=== PATIENT | female | born 1955 | race Caucasian/White ===

== ENCOUNTER 2023-08-03 06:16 | Day surgery (SDC) | payer MEDICARE, SELFPAY ==
[2023-08-03] VITALS (9 sets, daily range): BP systolic 118–167; BP diastolic 62–129; BMI 29.1
[2023-08-03] MEDS: Pyridium 200 MG PO (07:21)
[2023-08-03] MEDS: NORMOSOL-R 1000 IV (07:21)
== END 2023-08-03 10:20 | disposition home or self-care (01) ==
LOC: SDS 06:16
PROVIDERS: ATTENDING PHYSICIAN Obstetrics & Gynecology
DX: D25.1 Intramural leiomyoma of uterus (principal); R31.29 Other microscopic hematuria
CPT/HCPCS: 58558; 88305; 88341; 88342

== ENCOUNTER → 2023-09-09 15:47 | Outpatient (REF) | payer MEDICARE, SELFPAY ==
[2023-09-09 19:50] LABS: Urine Albumin Trace (Neg - Trace); Urine Bilirubin Negative (Negative); Urine Character Slightly Cloudy (Clear); Urine Color Yellow; Urine Glucose Negative (Negative); Urine Ketone Trace (Negative); Urine Leukocyte 1+ (Negative); Urine Nitrite Negative (Negative); Urine Occult Blood 3+ (Negative); Urine Urobilinogen Negative (Neg - 1+)
[2023-09-09 19:59] LABS: Urine Squamous Cell 16-20 /LPF (Few)
[2023-09-09 20:00] LABS: Urine Bacteria Moderate (Negative); Urine Red Blood Cell 30-40 /HPF (0-2)
[2023-09-09 20:01] LABS: Urine Mucus Moderate
== END ==
LOC: CLAB 15:47
PROVIDERS: ATTENDING PHYSICIAN Family Medicine
DX: R10.84 Generalized abdominal pain (principal)
CPT/HCPCS: 81003; 81015; 87086

== ENCOUNTER 2023-09-15 18:15 | Inpatient (IN) | payer MEDICARE, SELFPAY ==
[2023-09-15 13:47] VITALS: BP 144/85
[2023-09-15 14:23] LABS: % Basophils 0.2 % (0-2); % Eosinophils 0.2 % (0-6); % Immature Granulocytes 0.4 % (0-0.5); % Lymphocytes 5.1 % (20.5-51.1); % Monocytes 4.3 % (1.7-9.3); % Neutrophils 89.8 % (42.2-75.2); Absolute Immature Granulocytes 0.1 10^3/uL (0-0.05); Absolute Lymphocytes 0.8 10^3/uL (1.2-3.4); Absolute Monocytes 0.7 10^3/uL (0.1-0.6); Absolute Neutrophils 14.7 10^3/uL (1.4-6.5); Hematocrit 45.2 % (37.0-47.0); Hemoglobin 15.3 g/dL (12.0-16.0); Mean Corp Hgb Conc. 33.8 g/dL (33.0-37.0); Mean Corpuscular Hgb 29.8 pg (27.0-31.0); Mean Corpuscular Volume 88.1 fL (81.0-99.0); Mean Platelet Volume 10.1 fL (7.4-10.4); Nucleated Red Blood Cells % 0 %; Platelet Count 308 10^3/uL (130-400); Red Blood Cell Count 5.13 10^6/uL (4.20-5.40); Red Cell Dist. Width 13.4 % (11.5-14.5); White Blood Cell Count 16.4 10^3/uL (4.8-10.8)
[2023-09-15 14:24] LABS: Urine Albumin Trace (Neg - Trace); Urine Bilirubin 1+ (Negative); Urine Character Clear (Clear); Urine Color Yellow; Urine Glucose Negative (Negative); Urine Ketone Trace (Negative); Urine Leukocyte 2+ (Negative); Urine Nitrite Negative (Negative); Urine Occult Blood Trace (Negative); Urine Specific Gravity 1.015 (<1.030); Urine Urobilinogen Negative (Neg - 1+)
[2023-09-15 14:39] VITALS: BMI 27.5
[2023-09-15 14:39] LABS: ALT (SGPT) 31 U/L (0-35); AST (SGOT) 26 U/L (14-36); Albumin 4.5 g/dl (3.5-5.0); Alkaline Phosphatase 95 U/L (38-126); Blood Urea Nitrogen 18 mg/dl (7-17); Carbon Dioxide 24 mmol/L (22-30); Chloride 106 mmol/L (98-107); Glucose 111 mg/dl (70-99); Lipase 63 U/L (23-300); Potassium 4.1 mmol/L (3.5-5.1); Sodium 137 mmol/L (135-145); Total Protein 7.2 g/dl (6.3-8.2); eGFR > 60.00
--- NOTE | 2023-09-15 14:54 | ED.GENMED ---
History of Present Illness
General
Chief Complaint: Abdominal Symptoms
Source: patient
Exam Limitations: none
Time Seen by Provider: 09/15/23 14:37
Nursing documentation reviewed up to this point in time: agreed with
Travel History
Have you had any contact with someone who has COVID-19?: No
Do you have any symptoms of coronavirus? Fever > 100 degrees, chills, cough, shortness of breath, sore throat, loss of taste or smell, muscle aches, or headache?: No
History of Present Illness
History of Present Illness:
68-year-old female with history of anxiety, MVP, recurrent UTI, benzodiazepine abuse, smoker, HLD, polyarthralgia, PVD, kidney stones, Recent endometrial lesion with microscopic hematuria for which she had a hysteroscopy with dilation and curettage
and a cystoscopy on 08/03/[address] Dennis Nevarez. States ever since then she's had mid lower abdominal sharp shooting pains that radiate to her rectum and cause painful BMs and also radiates up to her chest at times (she had umbilical hernia repair
and afraid 'something is strangulating my bowel' or 'maybe it's a kidney stone.'
She has seen Dr. Nevarez twice for these symptoms, last time was 9 days ago, told to take Miralax, stool softener
Said she called her GI Dr. Green who had no openings until December, and recommended she see her PCP Dr. Caceres
Saw Dr. Caceres's partner Dr. Ball 2 days ago gave rx for muscle relaxant that 'starts with a D,'
Has f/u appt with Dr. Nevarez in 9 days.
Past History
Past History
ED Past Medical History: Other (MVP, renal cyst)
ED Past Surgical History: Appendectomy, Gynecological and Urological
Social History
Tobacco: Smoker
Alcohol: Occasional
Drug: None
Personal:
Living: with family
Employment: Other
Family History
Family History: Hypertension
Review of Systems
Review of Systems
Allergies reviewed?: Yes
All Other Systems: ROS reviewed and negative except as documented in HPI and ROS
Constitutional: Denies fever
Respiratory: Denies trouble breathing
Cardiac: Denies chest pain
ABD/GI: Reports abdominal pain, nausea, diarrhea and constipated; Denies vomiting, bloody stools or black stools
: Reports flank pain (Left); Denies dysuria, difficulty voiding or urgency
Musculoskeletal: Reports no symptoms
Skin: Reports no symptoms
Neurological: Reports no symptoms
Phy Exam
Physical Exam
Physical Exam:
GENERAL: No acute distress. A&Ox3.
CONSTITUTIONAL: Afebrile.
EYES: clear, conjunctivae normal
ENMT: moist mucus membranes, Pharynx nl
RESPIRATORY: Regular respirations, nonlabored, lungs clear.
CARDIOVASCULAR: Regular rate and rhythm, no murmurs, no rubs.
GI: Soft, generally tender to palpation, hypoactive BS
MUSCULOSKELETAL: Moves with ease. Well perfused.
SKIN: Warm, dry, pink
PSYCH: Normal mood and affect. Well kept, interactive and appropriate
NEUROLOGIC: Awake, alert and oriented. No focal neurological deficits
Course
Orders/Labs/Results
Orders:
Orders
09/15/23 13:55
Complete Blood Count/With Diff Urgent
Comprehensive Metabolic Panel Urgent
Lipase Urgent
Urinalysis Reflex To Culture Urgent
Date Specimen was Collected: 09/15/23
Time Specimen was Collected: 13:52
Urine Microscopic Reflex Cult Urgent
Urine Culture Urgent
YOUNG Source: U
Specimen Description:
Date Specimen was Collected: 09/15/23
Time Specimen was Collected: 13:52
09/15/23 Dinner
NPO
Allow oral meds: Yes
Allow clear liquids: Sips of Clears
09/15/23 15:02
EKG [Electrocardiogram (*1)] Urgent
Reason for Study: Chest Pain
EKG- Treatment ONCE
09/15/23 15:21
CT Abd/pel Without Iv Or Oral Urgent
Comment:
Reason For Exam: gen abd and L flank pain, hx stones
09/15/23 15:23
0.9% Sodium Chloride 1000 ml [Nss] 1,000 ml IV BOLUS
09/15/23 15:38
Ketorolac [Toradol] 15 mg IV NOW STA
09/15/23 16:50
HYDROmorphone [Dilaudid] 0.5 mg IV NOW STA
09/15/23 16:55
MetroNIDAZOLE 500 MG/100 ML [Flagyl 500 mg] 100 ml IV NOW
09/15/23 16:56
CefTRIAXone [Rocephin] 1,000 mg IV NOW STA
09/15/23 16:58
GASTROINTESTINAL CONSULT Urgent
Consulting Provider: Michelle Marquez
Was physician already notified: Yes
Reason for consult: severe sigmoid diverticulitis
09/15/23 17:09
Ondansetron Injectable [Zofran] 4 mg .ROUTE .STK-MED ONE
09/15/23 17:11
Ondansetron Injectable [Zofran] 4 mg IV NOW STA
09/15/23 17:22
Admit/Transfer Patient As Directed
Co-Sign Provider:
Level of Care: Inpatient admission
Assign to:: Medical/Surgical
Physician / Group: colette
Diagnosis: diverticulitis
Reason for Hospitalization: diverticulitis
Expected length of stay greater than two midnights?: Yes
ELOS- Estimated Length of Stay in days: 2
I certify the patient meets the requirements for IP care: Yes
Code Status As Directed
Resuscitation Status: Full Code
09/15/23 21:12
0.9% Sodium Chloride 1000 ml [Nss] 1,000 ml IV 80 mls/hr
HYDROmorphone [Dilaudid] 0.5 mg IV Q4HPRN PRN
Heparin 5,000 units SC Q12
Ondansetron Injectable [Zofran] 4 mg IV Q6HPRN PRN
09/15/23 21:12
Activity As Directed
Activity Level: As Tolerated
Vital Signs As Directed
Frequency: Per unit guidelines
DX Deep Vein Thrombosis Video Routine
09/15/23 21:21
Albuterol [ProAIR HFA INHALER] 1 puff INH R Q4HPRN PRN
09/15/23 22:00
Piperacillin/Tazo 3.375 Gram [Zosyn] 3.375 gram in 50 ml IV Q6H
09/16/23 08:00
Acetaminophen [Tylenol] 1,000 mg PO DAILY
09/16/23 08:22
Complete Blood Count/With Diff IN AM
Comprehensive Metabolic Panel IN AM
Abnormal Lab Results
09/15/23
13:55
WBC 16.4 H 10^3/uL
(4.8-10.8)
Abs Immat Gran (auto) 0.1 H 10^3/uL
(0-0.05)
Absolute Neuts (auto) 14.7 H 10^3/uL
(1.4-6.5)
Absolute Lymphs (auto) 0.8 L 10^3/uL
(1.2-3.4)
Absolute Monos (auto) 0.7 H 10^3/uL
(0.1-0.6)
Neutrophils % 89.8 H %
(42.2-75.2)
Lymphocytes % 5.1 L %
(20.5-51.1)
BUN 18 H mg/dl
(7-17)
Creatinine 0.5 L mg/dL
(0.6-1.0)
Glucose 111 H mg/dl
(70-99)
Total Bilirubin 2.0 H mg/dl
(0.2-1.3)
Urine Ketones Trace A
(Negative)
Ur Occult Blood Reflex Trace A
(Negative)
Urine Bilirubin 1+ A
(Negative)
Leukocyte Esterase Rfl 2+ A
(Negative)
Urine RBC 3-6 A /HPF
(0-2)
Urine Bacteria (Reflex) Few A
(Negative)
09/15/23 13:55
09/15/23 13:55
Vital Signs
Initial and Last Documented VS:
Initial Vital Signs
Temp Pulse Resp BP Pulse Ox
98.1 F 95 18 144/85 98
09/15/23 13:47 09/15/23 13:47 09/15/23 13:47 09/15/23 13:47 09/15/23 13:47
Last Documented Vital Signs
Temp Pulse Resp BP Pulse Ox
98.6 F 77 20 137/76 95
09/16/23 15:42 09/16/23 15:42 09/16/23 15:42 09/16/23 15:42 09/16/23 15:42
MDM/Problems Addressed
Differential Diagnosis Includes:
UTI, kidney stone, cystitis, bowel obstruction, hernia
MDM/Problems Addressed:
68-year-old female with history of anxiety, MVP, recurrent UTI, benzodiazepine abuse, smoker, HLD, polyarthralgia, PVD, kidney stones, Recent endometrial lesion with microscopic hematuria for which she had a hysteroscopy with dilation and curettage
and a cystoscopy on 08/03/[address] Dennis Nevarez. States ever since then she's had mid lower abdominal sharp shooting pains that radiate to her rectum and cause painful BMs and also radiates up to her chest at times (she's been researching and she
had umbilical hernia repair and afraid 'something is strangulating my bowel' or 'maybe it's a kidney stone.'
She has seen Dr. Nevarez twice for these symptoms, last time was 9 days ago, told to take Miralax, stool softener
Said she called her GI Dr. Green who had no openings until December, and recommended she see her PCP Dr. Caceres
Saw Dr. Caceres's partner Dr. Ball 2 days ago gave rx for 'muscle relaxant' called her pharmacy, it is Dicyclomine, she took this a.m. and it helped her pain but it makes her sleepy which she can't afford as she is in school and needs to study.
Has f/u appt with Dr. Nevarez in 9 days.
States pain is 6/10, durin initial exam pain several times came in waves lower mid abdomen into rectum and also now left flank
Afebrile, NAD
09/15/2023 1549 PM
CBC: WBC 16.4
CMP: No clinically significant abnormality
UA: 2+ leukocyte Estrace, 3-6 RBCs, trace blood, negative nitrites, greater than 30 squamous cells, few bacteria, nothing to indicate significant UTI or hematuria
09/15/[address] abdomen pelvis without p.o. or IV contrast radiology report read: IMPRESSION:
1. � SEVERE ACUTE DIVERTICULITIS in the MID SIGMOID COLON.
2. � Small amount of pelvic ascites.
3. � Bilateral nonobstructing intrarenal calculi.
4. � Moderate number of left renal cysts.
5. � Severe diffuse hepatic steatosis.
6. � Small hiatal hernia.
7. � Moderate to severe calcific atherosclerotic plaque in the abdominal aorta.
8. � Mild cardiomegaly.
Hospitalist and GI notified of admission, consult for GI in
IV antibiotics started, pt allergy to Cipro, will give Rocephin
*Critical Care Note
Total Time (30-74mins, 75-104mins- exclusive of procedures): Not Applicable
ED Attending Note
-
Portions of this chart may have been created with voice recognition software.� Occasional wrong word or��sound alike� substitutions may have occurred due to the inherent limitations of voice recognition software.
Discharge Plan
Departure
Patient Disposition: Admit
Date of Disposition: 09/15/23
Time of Disposition: 16:51
Admit to: Med/Surg
Presentation/result/management discussed w/ accepting MD/DO: Hospitalist
Condition: Fair
Discharge Problem:
Diverticulitis of sigmoid colon
Interventions
Interventions:
*Risk Screen - Suicide Last Done: 09/15/23 21:34
*General Assessment Last Done: 09/15/23 14:39
*Neglect/Abuse Screening Last Done: 09/15/23 14:39
ED- Fall Risk Assessment Last Done: 09/15/23 14:39
*ED COVID-19 Vaccine History Last Done: 09/15/23 13:49
*Nursing Disposition Last Done: 09/15/23 18:41
ZE-Zleyjl-Hkzuzmhnrq Assessment Last Done: 09/15/23 14:39
Discharge Date and Time
Discharge Date/Time: 09/15/23 21:15
[2023-09-15 15:02] LABS: Urine Squamous Cell >30 /LPF (Few)
[2023-09-15 15:17] LABS: Urine Bacteria Few (Negative)
[2023-09-15] MEDS: NSS 1000 IV ×2 (15:50→21:52)
[2023-09-15] MEDS: TORADOL 15 MG IV (15:50)
--- NOTE | 2023-09-15 15:56 | EDRN ---
the pt came back from CT scan and this RN approached the pt in [address], this RN was going to administer Toradol and IVF, the pt stated to this RN, 'I was wondering why you didn't give my hydration or pain medications', this RN stated that the pt
was taken to CT scan before this RN could get to the pt to administer medications, this RN was about to administer Toradol and before Toradol administration this RN notified the pt that the medication may burn slightly entering the pts vein, this RN
slowly pushed the IV Toradol and the pt stated to this RN, 'You could have told me that the medication burned, you said it slightly burned', this RN notified the pt that this RN did educate the pt on how the medication could burn entering the vein,
this RN checked the pts PIV and there is positive blood return and the PIV was flushed before IVF Bolus was hung, no s/s of infiltration, no c/o pain at the site, the pt is resting in stretcher in the lowest position, side rails up x2, call keene
within reach, HOB elevated, will continue to monitor the pt closely
[2023-09-15 16:04] VITALS: BP 136/75
--- NOTE | 2023-09-15 16:46 | EDRN ---
the pt is resting in stretcher in the lowest position, side rails up x2, HOB elevated, no s/s of distress, the pt asked this RN, 'When is the doctor going to let me know what is going on this is ridiculous, and i really don't understand why i am in
this hallway', this RN assured the pt that the provider would come back to the pts bedside to discuss results, and this RN apologized to the pt for her room situation in the hallway, the pt denies needing anything else at this time, awaiting for
provider to come back to the pts bedside, will continue to monitor the pt closely
[2023-09-15] MEDS: DILAUDID 0.5 MG IV ×2 (17:06→21:51)
[2023-09-15] MEDS: FLAGYL 500 MG 100 IV (17:06)
[2023-09-15] MEDS: ROCEPHIN 1000 MG IV (17:06)
[2023-09-15] MEDS: ZOFRAN 4 MG IV (17:11)
--- NOTE | 2023-09-15 17:15 | EDRN ---
Dr. Calderon was at the pts bedside while this RN was administering medications, this RN explained to the pt that before dilaudid administration she should understand that she may become dizzy, lightheaded, the pt stated to this RN, 'Okay i just
need something for pain it is so bad it's definitely a 10/10 in my stomach', this RN slowly pushed IV dilaudid and about 2 minutes after dilaudid administration the pt stated to this RN with Dr. Calderon present, 'Oh oh i really don't like that
feeling, don't ever give that to me again, i feel light headed and i don't like how i feel at all', this RN assured the pt that the feeling would pass, this RN will continue to monitor the pt closely
--- NOTE | 2023-09-15 17:21 | EDRN ---
this RN walked up to the pt in [address] and the pt has no c/o dizziness, no c/o light headedness, no s/s of distress, will continue to monitor the pt closely
--- NOTE | 2023-09-15 17:24 | HPS.HSE ---
Family Physician
-
Family Physician: Jesse Caceres
Chief Complaint
-
abdominal pain
History of Present Illness
68-year-old female past medical history of anxiety, mitral valve prolapse, recurrent UTI, diverticulosis, kidney stones, renal cyst, GERD, hyperlipidemia, SVT, presenting for abdominal pain.
Patient recently had cystoscopy a few weeks ago by her urogynecologist Dr. Nevarez because of frequent UTIs and microscopic hematuria. Cystoscopy was negative but he also performed D&C for endometrial lesion. Afterwards patient started developing
abdominal pain in the bilateral lower quadrants described as sharp shooting pain to the rectum as well as the chest symptoms. She has severe pain with bowel movements and rectal pain. She had fever of 104 a week ago as well as 101 today but try to
avoid coming to the emergency room. She was concerned that she was having strangulated bowel or kidney stone due to her history of hernia repair and kidney stones. She denies any blood in the stool or black stool. She had some nausea but denies
any vomiting.
She did have a small bowel movement today.
Patient recently had SVT with heart rate up to 40 and went to another emergency room and was told to take beta-hill but she never took it but she was concerned about the side effects.
Denies smoking or alcohol use.
Medical History
Past Medical History
Past Medical History: Reports Other (anxiety, mitral valve prolapse, recurrent UTI, diverticulosis, kidney stones, renal cyst, GERD, hyperlipidemia, SVT)
Past Surgical History: Reports Other ( Left renal cyst aspiration, appendectomy, laser lithotripsy and ureteral stent, bilateral tubal ligation, umbilical ventral hernia repair with mesh, kidney stone removal,)
Social History
Tobacco: Non-smoker
Alcohol: None
Drug: None
Family History
Family History: Not pertinent
Allergies / Home Medications
Allergies reflects when Allergies were last updated in [employer].
Home Medications with original date entered in [employer]
Allergy/Medication List:
Allergies
Allergy/AdvReac Type Severity Reaction Status Date / Time
nitrofurantoin Allergy Mild Nausea / Verified 08/03/23 06:59
[From Macrobid] Vomiting
blue dye Allergy Itching Verified 08/03/23 06:59
ciprofloxacin [From Cipro] Allergy itchy,metalic Verified 08/03/23 06:59
taste
epinephrine Allergy almost Verified 08/03/23 06:59
pass out
nickel Allergy Swelling Verified 08/03/23 06:59
Sulfa (Sulfonamide Allergy metalic Verified 08/03/23 06:59
Antibiotics) taste/itchy
[Sulfa(Sulfonamide
Antibiotics)]
Blue Allergy Itching Uncoded 08/03/23 06:59
Home Medications
acetaminophen 500 mg tablet 1,000 mg PO DAILY 04/23/23
albuterol sulfate 90 mcg/actuation breath activated powder inhaler,sensor 1 inh inhalation Q4H PRN shortness of breath 09/15/23
docusate sodium 100 mg capsule (Colace) 100 mg PO DAILYPRN PRN constipation 09/15/23
polyethylene glycol 3350 17 gram oral powder packet (Miralax) 17 g PO DAILYPRN PRN constipation 09/15/23
simethicone 80 mg chewable tablet 80 mg PO TIDPRN PRN gas pains 09/15/23
valacyclovir 500 mg tablet (Valtrex) 500 mg PO DAILY PRN cold sores 09/15/23
Review of Systems
-
History Source: Patient
A 12 point ROS was completed and negative except as noted: Yes
Constitutional: Reports No Symptoms
EENT: Reports No Symptoms
Respiratory: Reports No Symptoms
Cardiac: Reports No Symptoms
Abdomen/GI: Reports See HPI
: Reports No Symptoms
Musculoskeletal: Reports No Symptoms
Skin: Reports No Symptoms
Neurological: Reports No Symptoms
Endocrine: Reports No Symptoms
Hematologic/Lymphatic: Reports No Symptoms
Psych: Reports No Symptoms
Physical Exam
Vital Signs
Vital Signs
Temp Pulse Resp BP Pulse Ox
98.1 F 86 16 136/75 99
09/15/23 16:04 09/15/23 16:04 09/15/23 16:04 09/15/23 16:04 09/15/23 16:04
Physical Exam
General: Well Developed, Well Nourished and No Apparent Distress
HEENT: NormoCephalic, Moist mucous membranes and Atraumatic
Respiratory: Clear
Cardiac: S1/S2 and Regular Rhythm; No Murmur or Rub
GI: Soft, Non Tender, Non Distended, Normal Bowel Sounds and Tender (LLQ and RLQ ); No Organomegaly
Rectal: Deferred by Provider
Musculoskeletal: No Clubbing, No Cyanosis and No Edema
Skin: No Rash
Neuro: Nonfocal/grossly intact
Laboratory Results
-
09/15/23 13:55
09/15/23 13:55
Laboratory Results
Total Bilirubin 2.0 mg/dl (0.2-1.3) H 09/15/23 13:55
AST 26 U/L (14-36) 09/15/23 13:55
ALT 31 U/L (0-35) 09/15/23 13:55
Alkaline Phosphatase 95 U/L (38-126) 09/15/23 13:55
Lipase 63 U/L (23-300) 09/15/23 13:55
Data Reviewed
-
Lab Data: Labs Reviewed by me
Old Records: Reviewed
Impression/Plan
-
IMPRESSION:
PLAN:
# Severe acute diverticulitis mid sigmoid colon
-N.p.o.
-IV fluids
-Zosyn
-GI consulted
-Zofran for nausea, Dilaudid for pain
Mitral valve prolapse
History of SVT
Anxiety
History of kidney stone status post ureteral stent/lithotripsy
History of frequent UTIs
History of renal cysts
GERD
Hyperlipidemia
History of umbilical/ventral hernia status post hernia repair
History of bilateral tubal ligation
Full code
DVT prophylaxis�heparin
N.p.o.
--- NOTE | 2023-09-15 18:18 | EDRN ---
this RN called the receiving unit and notified them that paper report was going to be tubed up
[2023-09-15 21:20] VITALS: BP 148/74; BMI 27.2
[2023-09-15] MEDS: HEPARIN 5000 UNITS SC (21:51)
[2023-09-15] MEDS: ZOSYN 50 IV (21:51)
[2023-09-15 23:34] VITALS: BP 133/77
[2023-09-16] MEDS: ZOSYN 50 IV ×4 (04:12→21:00)
[2023-09-16] MEDS: DILAUDID 0.5 MG IV (05:51)
--- NOTE | 2023-09-16 06:56 | CON.GI ---
Addendum entered and electronically signed by Michelle Marquez MD 09/16/23 16:10:
I saw and examined the patient.
The HIGH RISK CASE MANAGER or PA's note was reviewed and I agree with the note.
Comment: 68-year-old female presenting with abdominal pain found to have diverticulitis. CT reviewed shows severe diverticulitis as well as hepatic steatosis. White blood cell count on admission was 16 improved to 12. Overall feels improved.
On my exam had minimal tenderness to the left lower quadrant. She is also having some rectal pain.
At this time, will advance diet from clear liquids to low residue tonight. I reviewed with the patient in detail what entails of the low residue diet. If tolerates, can be discharged in the morning, she does not necessarily need GI evaluation
prior. If she is discharged, would recommend a total of 14 days of antibiotics; can switch to Augmentin. Allergy to sulfa and cipro.
In regards to the rectal pain, I suspect she has an anal fissure. I offered to do another rectal exam patient asked to defer. I sent over lidocaine and nifedipine cream to [facility] pharmacy which patient can get upon discharge.
I made an outpatient appointment with our physician lpn or medical assistant Roopa Fox October 27 at 11:[address] Green. Appointment card was given to the patient and added to the discharge summary.
Original Note:
Consultation
-
Date/Time Consultation Requested: 09/15/23 1700
Date/Time Consultation Performed: 09/16/23 0815
Requesting Provider: MENDEZ Fischer
Performing Provider: MENDEZ Daivs, Jamilah Marquez MD
Reason for Consultation: abdominal pain
Medical History
Chief Complaint / HPI
Chief Complaint: abdominal and rectal pain
History of Present Illness:
Pt is a 68yo with hx prior diverticulitis 10 years ago, anxiety, MVP, renal stones, GERD, SVT with recent cystoscopy and removal of endometrial lesion for frequent with onset of abdominal pain. She was seen by PCP and urogyn but not improved with
muscle relaxants. She was noted with fever and leukocytosis on admission. Ct completed without IV or oral contrast with severe acute diverticulitis. also noted non obstructing renal stones, renal cysts, severe hepatic steatosis, small HH,
atherosclerosis and CM. Last colonoscopy [address] Green noted HP and TA polyps, diverticulosis and hemorrhoids.
At this time pt states 10/10 pain at worst. Pain was constant for a few weeks now 8/10. She did have variable stools with some hard, loose and soft stools. She also admits to rectal pain. She otherwise admits to nausea but not vomiting,
dysphagia, GERD, blood or black in stools.
Past Medical History
Past Medical History: Arrhythmias (SVT), GERD, Hypercholesterolemia, Valvular Disease (MVP), Psychiatric (anxiety) and Other (recurrent UTI, diverticulitis, diverticulosis, renal cyst, renal stones,)
Past Surgical History: Appendectomy, Gynecological (tubal ligation) and Other (renal cyst aspiration, ureteral stent and laser lithotripsy for stones, unbilical ventral hernia repair with mesh)
Social History
Tobacco: Former Smoker
Alcohol: Occasional (rare)
Drug: None
Personal:
Living: With Family
Employment: Employed (working and in law school)
Family History
Family History: Other (materal GM with breast CA, maternal GF with panc CA, no family hx colon Ca or polyps)
Allergies / Home Medications
Allergy/AdvReac Type Severity Reaction Status Date / Time
blue dye Allergy Itching-Per Verified 09/15/23 21:16
Dermatology
ciprofloxacin [From Cipro] Allergy itchy,metalic Verified 08/03/23 06:59
taste
epinephrine Allergy almost Verified 08/03/23 06:59
pass out
nickel Allergy Swelling/IT Verified 09/15/23 21:16
SANDRA
nitrofurantoin Allergy Nausea / Verified 09/15/23 21:16
[From Macrobid] Vomiting
Sulfa (Sulfonamide Allergy metalic Verified 08/03/23 06:59
Antibiotics) taste/itchy
[Sulfa(Sulfonamide
Antibiotics)]
Blue Allergy Itching Uncoded 08/03/23 06:59
Medication Instructions Recorded
acetaminophen 500 mg tablet 1,000 mg PO BIDPRN PRN back pains 04/23/23
albuterol sulfate 90 mcg/actuation 1 inh inhalation R Q4HPRN PRN 09/15/23
breath activated powder shortness of breath
inhaler,sensor
docusate sodium 100 mg capsule 100 mg PO DAILYPRN PRN constipation 09/15/23
(Colace)
polyethylene glycol 3350 17 gram 17 g PO DAILYPRN PRN constipation 09/15/23
oral powder packet (Miralax)
simethicone 80 mg chewable tablet 80 mg PO TIDPRN PRN gas pains 09/15/23
valacyclovir 1 gram tablet 1,000 mg PO BIDPRN PRN cold sores 09/15/23
(Valtrex)
Review of Systems
-
History Source: Patient
Constitutional: Reports Fever and Weight Gain
EENT: Reports No Symptoms
Respiratory: Reports No Symptoms
Cardiac: Reports No Symptoms
Abdomen/GI: Reports Abdominal Pain (lower abdominal pain )
: Reports Frequency
Musculoskeletal: Reports No Symptoms
Skin: Reports No Symptoms
Neurological: Reports Dizzy (with muscle relaxant use prior to admission )
Endocrine: Reports No Symptoms
Vital Signs
Temp Pulse Resp BP Pulse Ox
97.7 F 82 18 133/77 92
09/15/23 23:34 09/15/23 23:34 09/15/23 23:34 09/15/23 23:34 09/15/23 23:34
Physical Exam
Exam
General: Well Developed, Well Nourished and No Apparent Distress
Respiratory: Clear
Cardiac: Regular Rhythm
GI: Soft, Non Distended and Tender (minimal lower abdominal pain)
Rectal: Other (small posterior fissure, minimal pain with rectal exam)
Musculoskeletal: No Clubbing and No Cyanosis
Skin: Warm and Dry
Neuro: Awake, Alert and AO x 3
Psych: Calm
Results
WBC 16.4 10^3/uL (4.8-10.8) H 09/15/23 13:55
Hgb 15.3 g/dL (12.0-16.0) 09/15/23 13:55
Hct 45.2 % (37.0-47.0) 09/15/23 13:55
MCV 88.1 fL (81.0-99.0) 09/15/23 13:55
Plt Count 308 10^3/uL (130-400) 09/15/23 13:55
Absolute Neuts (auto) 14.7 10^3/uL (1.4-6.5) H 09/15/23 13:55
Sodium 137 mmol/L (135-145) 09/15/23 13:55
Potassium 4.1 mmol/L (3.5-5.1) 09/15/23 13:55
Chloride 106 mmol/L (98-107) 09/15/23 13:55
Carbon Dioxide 24 mmol/L (22-30) 09/15/23 13:55
BUN 18 mg/dl (7-17) H 09/15/23 13:55
Creatinine 0.5 mg/dL (0.6-1.0) L 09/15/23 13:55
Calcium 9.0 mg/dl (8.4-10.2) 09/15/23 13:55
Total Bilirubin 2.0 mg/dl (0.2-1.3) H 09/15/23 13:55
AST 26 U/L (14-36) 09/15/23 13:55
ALT 31 U/L (0-35) 09/15/23 13:55
Alkaline Phosphatase 95 U/L (38-126) 09/15/23 13:55
Lipase 63 U/L (23-300) 09/15/23 13:55
Diagnostic Image Results:
09/15/23 CT A/p without IV or oral
1. � SEVERE ACUTE DIVERTICULITIS in the MID SIGMOID COLON.
2. � Small amount of pelvic ascites.
3. � Bilateral nonobstructing intrarenal calculi.
4. � Moderate number of left renal cysts.
5. � Severe diffuse hepatic steatosis.
6. � Small hiatal hernia.
7. � Moderate to severe calcific atherosclerotic plaque in the abdominal aorta.
8. � Mild cardiomegaly.
Prior GI Procedures:
EGD: 12/2012 [facility]
�� - Normal first part of the duodenum. This was biopsied.
�� � � � � � � � � � - Gastritis. This was biopsied.
�� � � � � � � � � � - Gastritis. This was biopsied.
�� � � � � � � � � � - Normal esophagus.
Colonoscopy: 06/2021 [facility]
- Two diminutive polyps in the sigmoid colon Hyperplastic and in
�� � � � � � � � � � � the ascending colon Tubular adenoma, removed with a jumbo cold
�� � � � � � � � � � � forceps. Resected and retrieved.
�� � � � � � � � � � � - Diverticulosis in the sigmoid colon.
�� � � � � � � � � � � - Internal hemorrhoids.
Assessment / Plan
-
Pt is a 68yo with hx prior diverticulitis 10 years ago, anxiety, MVP, renal stones, GERD, SVT with recent cystoscopy and removal of endometrial lesion for frequent with onset of abdominal pain. She was seen by PCP and urogyn but not improved with
muscle relaxants. She was noted with fever and leukocytosis on admission. Ct completed without IV or oral contrast with severe acute diverticulitis. also noted non obstructing renal stones, renal cysts, severe hepatic steatosis, small HH,
atherosclerosis and CM. Last colonoscopy [address] Green noted HP and TA polyps, diverticulosis and hemorrhoids.
-diverticulitis with hx diverticulitis on past 10 years ago
-rectal pain with small post fissure on exam
-fever/leukocytosis
-GERD
-recent cystoscopy/removal of endometrial lesion
-CT noted severe hepatic steatosis
other medical problems:
-colon polyps
-MVP
-renal stones
-SVT
PLAN:
Etiology of symptoms likely related to diverticulitis noted on Ct
cont abx -- currently on IV Zosyn
will advance to clear diet-- consider further advancement later today if tolerating
if any recurrent fever obtain blood cultures
rectal pain possible small post fissure on exam vs hemorrhoidal vs other
reviewed with pharmacy no nitro or nifedipine cream in pharmacy and minimal pain on exam
will order sitz bath and Miralax daily to keep bowel moving. Reviewed with patient to keep area clean
message sent to office to arrange with Dr. Green HIGH RISK CASE MANAGER/PA after admission to discuss need to repeat colonoscopy last completed 06/2021 and fatty liver
fib4 1-- OP follow up to consider fibroscan
-
-
Thank you for consultation and allowing me to participate in the patient's care. Please call the certified professional midwife GI physician during the after hours with any questions or concerns.
[2023-09-16 07:30] VITALS: BP 141/78
[2023-09-16] MEDS: TYLENOL 1000 MG PO (07:50)
[2023-09-16] MEDS: HEPARIN 5000 UNITS SC ×2 (07:50→21:04)
[2023-09-16] MEDS: NSS 1000 IV (07:56)
[2023-09-16 08:50] LABS: % Basophils 0.3 % (0-2); % Eosinophils 0.4 % (0-6); % Immature Granulocytes 0.2 % (0-0.5); % Monocytes 5.4 % (1.7-9.3); % Neutrophils 82.7 % (42.2-75.2); Absolute Eosinophils 0.1 10^3/uL (0-0.7); Absolute Lymphocytes 1.3 10^3/uL (1.2-3.4); Absolute Monocytes 0.7 10^3/uL (0.1-0.6); Absolute Neutrophils 9.9 10^3/uL (1.4-6.5); Hematocrit 41.9 % (37.0-47.0); Hemoglobin 13.7 g/dL (12.0-16.0); Mean Corp Hgb Conc. 32.7 g/dL (33.0-37.0); Mean Corpuscular Hgb 29.7 pg (27.0-31.0); Mean Corpuscular Volume 90.7 fL (81.0-99.0); Mean Platelet Volume 10.4 fL (7.4-10.4); Nucleated Red Blood Cells % 0 %; Platelet Count 269 10^3/uL (130-400); Red Blood Cell Count 4.62 10^6/uL (4.20-5.40); Red Cell Dist. Width 13.7 % (11.5-14.5)
--- NOTE | 2023-09-16 09:46 | CM ---
Patient seen at bedside. Patient states that she lives with her and dog. patient has 3 adult children that assist as able. Patient home is 2 story home and patient has no DME or past needs for SNF or VN. Patient stated PCP is Dr. Taveras
and she uses the [facility] in [place]. Patient plan is home with no needs. CM will continue to follow for discharge planning needs.
Plan; home with no needs anticipated
[2023-09-16] MEDS: MIRALAX 17 GRAMS PO (09:49)
[2023-09-16 10:00] LABS: ALT (SGPT) 27 U/L (0-35); AST (SGOT) 28 U/L (14-36); Albumin 3.8 g/dl (3.5-5.0); Alkaline Phosphatase 86 U/L (38-126); Blood Urea Nitrogen 17 mg/dl (7-17); Calcium 8.2 mg/dl (8.4-10.2); Carbon Dioxide 20 mmol/L (22-30); Chloride 106 mmol/L (98-107); Estimated Creatinine Clearance 83 ml/min; Glucose 107 mg/dl (70-99); Potassium 3.7 mmol/L (3.5-5.1); Sodium 135 mmol/L (135-145); Total Bilirubin 2.9 mg/dl (0.2-1.3); Total Protein 6.3 g/dl (6.3-8.2); eGFR > 60.00
[2023-09-16] MEDS: ZOFRAN 4 MG IV (10:21)
--- NOTE | 2023-09-16 12:34 | W.PN.HOSP.TC ---
Today's Communication/Plan
-
see bold
Assessment / Plan
Assessment / Plan
Gen: NAD, AAOx3.
Eyes: EOMI, PERRLA, no scleral icterus.
Neck: supple.
CV: RRR, +S1/S2, no m/r/g.
Resp: CTAB, no rales, wheezes, or rhonchi.
Abd: +BS, soft, TTP in the RLQ and LLQ, ND
Skin: No rashes.
Neuro: CN 2-12 intact, non-focal.
Psych: Normal mood and affect.
CT A/P: Severe acute diverticulitis of the mid sigmoid colon.
Severe acute diverticulitis mid sigmoid colon:
-cont IVFs/Zosyn
-advanced to clears by GI
-Leukocytosis improving
-Zofran for nausea, Dilaudid for pain
Other problems:
Mitral valve prolapse
History of SVT
Anxiety
History of kidney stone status post ureteral stent/lithotripsy
History of frequent UTIs
History of renal cysts
GERD
Hyperlipidemia
History of umbilical/ventral hernia status post hernia repair
History of bilateral tubal ligation
FULL/heparin
Anticipated Discharge: 24 - 48 hours
Subjective/Interval History
-
Date of Service: September 16, 2023
Abdominal pain improving.
Objective Data
-
Labs:
Laboratory Results
09/16/23
08:22
WBC 12.0 H
Hgb 13.7
Hct 41.9
Plt Count 269
Sodium 135
Potassium 3.7
Chloride 106
Carbon Dioxide 20 L
BUN 17
Creatinine 0.5 L
Glucose 107 H
Calcium 8.2 L
Total Bilirubin 2.9 H
AST 28
ALT 27
Alkaline Phosphatase 86
Vital Signs:
Vital Signs
Temp Pulse Resp BP Pulse Ox
98.0 F 86 18 141/78 96
09/16/23 07:30 09/16/23 07:30 09/16/23 07:30 09/16/23 07:30 09/16/23 07:30
I&O
09/15/23 09/16/23 09/17/23
06:59 06:59 06:59
Intake Total 120 / 120
Balance 120 / 120
[2023-09-16] MEDS: DESENEX/MITRAZOL/ZEASORB 1 APPLIC TOPICAL (15:00)
[2023-09-16 15:42] VITALS: BP 137/76
[2023-09-16 19:00] VITALS: BP 136/70
[2023-09-16] MEDS: TYLENOL 650 MG PO (21:00)
[2023-09-16 23:00] VITALS: BP 135/72
[2023-09-17 03:00] VITALS: BP 149/80
[2023-09-17] MEDS: ZOSYN 50 IV ×2 (04:29→09:46)
[2023-09-17] MEDS: NSS 1000 IV (04:30)
[2023-09-17] MEDS: TYLENOL 650 MG PO (04:34)
[2023-09-17 07:25] VITALS: BP 136/76
[2023-09-17] MEDS: TYLENOL 1000 MG PO (08:08)
[2023-09-17] MEDS: MIRALAX 17 GRAMS PO (08:08)
[2023-09-17] MEDS: DESENEX/MITRAZOL/ZEASORB 1 APPLIC TOPICAL (08:09)
[2023-09-17] MEDS: HEPARIN 5000 UNITS SC (08:09)
--- NOTE | 2023-09-17 08:43 | W.PN.GI.CBS2 ---
Today's Communication / Plan
-
Etiology of symptoms likely related to diverticulitis noted on Ct
cont abx -- currently on IV Zosyn to completed 14 days Augmentin on discharge
tolerating low residue diet
no further fever noted, repeat CBC pending
rectal pain some improvement -- reviewed with nursing for sitz bath and Miralax daily to keep bowel moving. keep rectal area clean
lidocaine and nifedipine cream sent to [facility] pharmacy -- reviewed with patient to call to review if would like to proceed with treatment vs hold with some improvement today
office visit 10/27 11:30 with Roopa prince as follow up to discuss need to repeat colonoscopy last completed 06/2021 and fatty liver
fib4 1-- OP follow up to consider fibroscan
reviewed with Dr. Huynh
Assessment / Plan
-
Pt is a 68yo with hx prior diverticulitis 10 years ago, anxiety, MVP, renal stones, GERD, SVT with recent cystoscopy and removal of endometrial lesion for frequent with onset of abdominal pain. She was seen by PCP and urogyn but not improved with
muscle relaxants. She was noted with fever and leukocytosis on admission. Ct completed without IV or oral contrast with severe acute diverticulitis. also noted non obstructing renal stones, renal cysts, severe hepatic steatosis, small HH,
atherosclerosis and CM. Last colonoscopy [address] Green noted HP and TA polyps, diverticulosis and hemorrhoids.
-diverticulitis with hx diverticulitis on past 10 years ago
-rectal pain with small post fissure on exam
-fever/leukocytosis
-GERD
-recent cystoscopy/removal of endometrial lesion
-CT noted severe hepatic steatosis
other medical problems:
-colon polyps
-MVP
-renal stones
-SVT
PLAN:
Etiology of symptoms likely related to diverticulitis noted on Ct
cont abx -- currently on IV Zosyn to completed 14 days Augmentin on discharge
tolerating low residue diet
no further fever noted, repeat CBC pending
rectal pain some improvement -- reviewed with nursing for sitz bath and Miralax daily to keep bowel moving. keep rectal area clean
lidocaine and nifedipine cream sent to [facility] pharmacy -- reviewed with patient to call to review if would like to proceed with treatment vs hold with some improvement today
office visit 10/27 11:30 with Roopa prince as follow up to discuss need to repeat colonoscopy last completed 06/2021 and fatty liver
fib4 1-- OP follow up to consider fibroscan
reviewed with Dr. Huynh
Subjective
Subjective
Date of Service: September 17, 2023
low residue diet + stools this am, feeling much better asking for discharge less rectal pain today
Objective
Data Reviewed
Laboratory Data:
Laboratory Results
09/16/23 08:22
Laboratory Results
Total Bilirubin 2.9 mg/dl (0.2-1.3) H 09/16/23 08:22
AST 28 U/L (14-36) 09/16/23 08:22
ALT 27 U/L (0-35) 09/16/23 08:22
Alkaline Phosphatase 86 U/L (38-126) 09/16/23 08:22
Lipase 63 U/L (23-300) 09/15/23 13:55
Vital Signs and I&O:
Vital Signs
Temp Pulse Resp BP Pulse Ox
97.7 F 77 22 136/76 94
09/17/23 07:25 09/17/23 07:25 09/17/23 07:25 09/17/23 07:25 09/17/23 07:25
I&O
09/16/23 09/17/23 09/18/23
06:59 06:59 06:59
Intake Total 120 / 120 620 / 620
Balance 120 / 120 620 / 620
Physical Exam
Physical Exam
HEENT: Anicteric and Moist mucous membranes
Cardiology: Normal Sinus Rhythm
Pulmonary: Clear
GI: Soft, Non Distended and Non Tender
Extremities: No Edema
Neuro: Non Focal
--- NOTE | 2023-09-17 09:06 | W.PN.HOSP.TC ---
Today's Communication/Plan
-
d/c
Assessment / Plan
Assessment / Plan
Gen: NAD, AAOx3.
Eyes: EOMI, PERRLA, no scleral icterus.
Neck: supple.
CV: remains RRR, +S1/S2, no m/r/g.
Resp: remains CTAB, no rales, wheezes, or rhonchi.
Abd: +BS, soft, NT to light palpation, ND
Skin: No rashes.
Neuro: CN 2-12 intact, non-focal.
Psych: Normal mood and affect.
CT A/P: Severe acute diverticulitis of the mid sigmoid colon.
Severe acute diverticulitis mid sigmoid colon:
-cont IVFs/Zosyn
-advanced to LR by GI
-Leukocytosis improving
-Zofran for nausea, Dilaudid for pain
Other problems:
Mitral valve prolapse
History of SVT
Anxiety
History of kidney stone status post ureteral stent/lithotripsy
History of frequent UTIs
History of renal cysts
GERD
Hyperlipidemia
History of umbilical/ventral hernia status post hernia repair
History of bilateral tubal ligation
FULL/heparin
Total time spent on d/c = 31 min. This included today's physical exam, progress note, review of laboratory and diagnostic data, preparation of discharge documents and prescriptions, and discussions about the pt's hospital course and discharge plan
with the patient and other medical librarian involved in the patient's care.
Anticipated Discharge: Today
Subjective/Interval History
-
Date of Service: September 17, 2023
Denies abdominal pain. Tolerating low residue diet. Had bowel movements. Asking to go home.
Objective Data
-
Labs:
Laboratory Results
09/17/23
08:55
WBC Pending
Hgb Pending
Hct Pending
Plt Count Pending
Vital Signs:
Vital Signs
Temp Pulse Resp BP Pulse Ox
97.7 F 77 22 136/76 94
09/17/23 07:25 09/17/23 07:25 09/17/23 07:25 09/17/23 07:25 09/17/23 07:25
I&O
09/16/23 09/17/23 09/18/23
06:59 06:59 06:59
Intake Total 120 / 120 620 / 620
Balance 120 / 120 620 / 620
[2023-09-17 09:24] LABS: Hematocrit 39.4 % (37.0-47.0); Mean Corpuscular Hgb 29.1 pg (27.0-31.0); Mean Corpuscular Volume 88.1 fL (81.0-99.0); Mean Platelet Volume 10.2 fL (7.4-10.4); Platelet Count 233 10^3/uL (130-400); Red Blood Cell Count 4.47 10^6/uL (4.20-5.40); Red Cell Dist. Width 13.3 % (11.5-14.5)
--- NOTE | 2023-09-17 10:25 | CM ---
Patient seen bedside, reports no new concerns. IMM reviewed, signed, placed in patients chart. Patient reports she does have transportation home. CM will continue to follow for discharge planning needs.
Plan; home no needs.
--- NOTE | 2023-09-17 18:03 | W.DCSUMMARY ---
Discharge Summary
Discharge Data
Date of Admission: 09/15/23
Date of Discharge: 09/17/23
-
Pending Results: No
Hospital Course
Primary diagnoses:
Severe acute diverticulitis mid sigmoid colon
Secondary diagnoses:
Mitral valve prolapse
History of supraventricular tachycardia
Anxiety
History of kidney stone status post ureteral stent/lithotripsy
History of frequent urinary tract infections
History of renal cysts
Gastroesophageal reflux disease
Hyperlipidemia
History of umbilical/ventral hernia status post hernia repair
History of bilateral tubal ligation
Consultants:
Gastroenterology
Imaging:
CT A/P: Severe acute diverticulitis of the mid sigmoid colon.
Hospital course: 68-year-old female who initially presented with chief complaint of abdominal pain as outlined in HPI on admission. CT scan above and notable for severe acute diverticulitis of the mid sigmoid colon. The patient was initially
n.p.o. and supported with IV fluids. She was placed on IV Zosyn. She was advanced to clear liquids and then a low residue diet and tolerated the low residue diet at the time of discharge. The patient's leukocytosis resolved. Patient was
discharged to complete 14 days of antibiotics with Augmentin.
Discharge Plan
-
Patient Disposition: Home (Routine Discharge)
Discharge Diagnosis/Procedures: severe, acute sigmoid diverticulitis
Condition: Good
Diet: Low Residue
Activity: No restrictions
Driving Restrictions: As prior to admission
Referrals:
Jesse Caceres DO [Family Provider] - in less than 1 week
Roopa Fox PA-C [Specified Professional Personl] - 10/28/23 11:30 am (Please call to reschedule if you can not keep this appointment. If your insurance requires a referral please contact your primary care physician prior to your appointment. )
Prescriptions:
New
amoxicillin-pot clavulanate 875-125 mg tablet
1 tab PO BID Qty: 24 0RF
Continued
acetaminophen 500 mg Tablet
1,000 mg PO BIDPRN PRN (Reason: back pains)
albuterol sulfate 90 mcg/actuation Aero Powdr Breath Act W/Sensor
1 inh INHALATION R Q4HPRN PRN (Reason: shortness of breath)
polyethylene glycol 3350 [Miralax] 17 gram Powder In Packet
17 g PO DAILYPRN PRN (Reason: constipation)
docusate sodium [Colace] 100 mg Capsule
100 mg PO DAILYPRN PRN (Reason: constipation)
simethicone 80 mg Tablet,Chewable
80 mg PO TIDPRN PRN (Reason: gas pains)
valacyclovir [Valtrex] 1 gram Tablet
1,000 mg PO BIDPRN PRN (Reason: cold sores)
Discharge Orders:
Discharge Patient (As Directed); Ordered 09/17/23
Ordered By: José Huynh
Discharge Date and Time
Discharge Date/Time: 09/17/23 10:30
== END 2023-09-17 10:30 | disposition home or self-care (01) | DRG 392 ==
LOC: 4 WEST ACU 18:15
PROVIDERS: Nurse Practitioner Adult Health; ADMITTING PHYSICIAN Hospitalist; ATTENDING PHYSICIAN Internal Medicine; CONSULT PHYSICIAN Internal Medicine Gastroenterology; EMERGENCY PHYSICIAN Emergency Medicine; FAMILY PHYSICIAN Family Medicine
DX: K57.32 Diverticulitis of large intestine without perforation or abscess without bleeding (principal); R18.8 Other ascites; I47.10 Supraventricular tachycardia, unspecified; K76.0 Fatty (change of) liver, not elsewhere classified; K44.9 Diaphragmatic hernia without obstruction or gangrene; N20.0 Calculus of kidney; N28.1 Cyst of kidney, acquired; I34.1 Nonrheumatic mitral (valve) prolapse; K60.2 Anal fissure, unspecified; F41.9 Anxiety disorder, unspecified; Z87.442 Personal history of urinary calculi; Z87.440 Personal history of urinary (tract) infections
CPT/HCPCS: 74176; 80053; 81003; 81015; 83690; 85025; 85027; 87086; 93005; 96361; 96374; 96375; 99285

== ENCOUNTER → 2023-09-27 15:21 | Outpatient (REF) | payer MEDICARE, SELFPAY | LOC: RAD 15:21 | PROVIDERS: ATTENDING PHYSICIAN Obstetrics & Gynecology; FAMILY PHYSICIAN Family Medicine | DX: N20.0 Calculus of kidney (principal) | CPT/HCPCS: 76770 ==

== ENCOUNTER → 2023-11-16 08:44 | Outpatient (REF) | payer MEDICARE, SELFPAY ==
[2023-11-16 09:08] LABS: % Basophils 0.5 % (0-2); % Eosinophils 2.4 % (0-6); % Immature Granulocytes 0.2 % (0-0.5); % Lymphocytes 20.2 % (20.5-51.1); % Monocytes 7.9 % (1.7-9.3); % Neutrophils 68.8 % (42.2-75.2); Absolute Eosinophils 0.2 10^3/uL (0-0.7); Absolute Lymphocytes 1.7 10^3/uL (1.2-3.4); Absolute Monocytes 0.7 10^3/uL (0.1-0.6); Absolute Neutrophils 5.8 10^3/uL (1.4-6.5); Hematocrit 44.5 % (37.0-47.0); Hemoglobin 14.5 g/dL (12.0-16.0); Mean Corp Hgb Conc. 32.6 g/dL (33.0-37.0); Mean Corpuscular Hgb 29.6 pg (27.0-31.0); Mean Corpuscular Volume 90.8 fL (81.0-99.0); Mean Platelet Volume 9.8 fL (7.4-10.4); Nucleated Red Blood Cells % 0 %; Platelet Count 257 10^3/uL (130-400); Red Cell Dist. Width 14.6 % (11.5-14.5); White Blood Cell Count 8.5 10^3/uL (4.8-10.8)
[2023-11-16 09:43] LABS: Blood Urea Nitrogen 17 mg/dl (7-17); Carbon Dioxide 28 mmol/L (22-30); Chloride 106 mmol/L (98-107); Glucose 96 mg/dl (70-99); Potassium 4.4 mmol/L (3.5-5.1); Sodium 141 mmol/L (135-145); eGFR > 60.00
[2023-11-16 09:54] LABS: Calcium 9.4 mg/dl (8.4-10.2)
== END ==
LOC: REG 08:44
PROVIDERS: ATTENDING PHYSICIAN Physician Assistant; FAMILY PHYSICIAN Family Medicine
DX: R10.32 Left lower quadrant pain (principal)
CPT/HCPCS: 36415; 80048; 85025

== ENCOUNTER → 2023-11-17 13:03 | Outpatient (REF) | payer MEDICARE, SELFPAY | LOC: RAD 13:03 | PROVIDERS: ATTENDING PHYSICIAN Physician Assistant; FAMILY PHYSICIAN Family Medicine | DX: K76.0 Fatty (change of) liver, not elsewhere classified (principal) | CPT/HCPCS: 74177; Q9967 ==

== ENCOUNTER → 2024-02-01 06:31 | Day surgery (SDC) | payer MEDICARE, SELFPAY | LOC: GI 06:31 | PROVIDERS: ATTENDING PHYSICIAN Specialist | DX: K57.32 Diverticulitis of large intestine without perforation or abscess without bleeding (principal); K57.30 Diverticulosis of large intestine without perforation or abscess without bleeding | CPT/HCPCS: 45378 ==

== ENCOUNTER → 2024-04-24 16:53 | Outpatient (REF) | payer MEDICARE, SELFPAY ==
[2024-04-24 18:22] LABS: Urine Albumin Trace (Neg - Trace); Urine Bilirubin Negative (Negative); Urine Character Clear (Clear); Urine Color Yellow; Urine Glucose Negative (Negative); Urine Ketone Negative (Negative); Urine Leukocyte 1+ (Negative); Urine Nitrite Negative (Negative); Urine Occult Blood 1+ (Negative); Urine Urobilinogen Negative (Neg - 1+); Urine pH 6.5 (5.0-9.0)
[2024-04-24 19:14] LABS: Urine Red Blood Cell 16-20 /HPF (0-2); Urine Squamous Cell >30 /LPF (Few)
[2024-04-24 19:15] LABS: Urine Bacteria Few (Negative); Urine White Cell 16-20 /HPF (0-5)
== END ==
LOC: REG 16:53
PROVIDERS: ATTENDING PHYSICIAN Obstetrics & Gynecology; FAMILY PHYSICIAN Family Medicine
DX: N39.0 Urinary tract infection, site not specified (principal)
CPT/HCPCS: 81003; 81015; 87086

== ENCOUNTER → 2024-05-04 15:20 | Outpatient (REF) | payer MEDICARE, SELFPAY ==
[2024-05-04 17:01] LABS: Urine Albumin Trace (Neg - Trace); Urine Bilirubin Negative (Negative); Urine Character Clear (Clear); Urine Color Yellow; Urine Glucose Negative (Negative); Urine Ketone Negative (Negative); Urine Leukocyte Negative (Negative); Urine Nitrite Negative (Negative); Urine Occult Blood Negative (Negative); Urine Urobilinogen Negative (Neg - 1+)
== END ==
LOC: CLAB 15:20
PROVIDERS: ATTENDING PHYSICIAN Obstetrics & Gynecology
DX: R33.9 Retention of urine, unspecified (principal)
CPT/HCPCS: 81003; 87086

== ENCOUNTER → 2024-09-21 08:02 | Outpatient (REF) | payer MEDICARE, SELFPAY ==
[2024-09-21 09:02] LABS: % Basophils 0.8 % (0-2); % Immature Granulocytes 0.2 % (0-0.5); % Lymphocytes 31.3 % (20.5-51.1); % Monocytes 6.8 % (1.7-9.3); % Neutrophils 54.9 % (42.2-75.2); Absolute Eosinophils 0.3 10^3/uL (0-0.7); Absolute Lymphocytes 1.5 10^3/uL (1.2-3.4); Absolute Monocytes 0.3 10^3/uL (0.1-0.6); Absolute Neutrophils 2.6 10^3/uL (1.4-6.5); Hematocrit 46.1 % (37.0-47.0); Hemoglobin 15.4 g/dL (12.0-16.0); Mean Corp Hgb Conc. 33.4 g/dL (33.0-37.0); Mean Corpuscular Hgb 29.7 pg (27.0-31.0); Mean Corpuscular Volume 88.8 fL (81.0-99.0); Mean Platelet Volume 10.2 fL (7.4-10.4); Nucleated Red Blood Cells % 0 %; Platelet Count 273 10^3/uL (130-400); Red Blood Cell Count 5.19 10^6/uL (4.20-5.40); Red Cell Dist. Width 13.1 % (11.5-14.5); White Blood Cell Count 4.8 10^3/uL (4.8-10.8)
[2024-09-21 09:10] LABS: Urine Albumin 1+ (Neg - Trace); Urine Bilirubin Negative (Negative); Urine Character Clear (Clear); Urine Color Yellow; Urine Glucose Negative (Negative); Urine Ketone Negative (Negative); Urine Leukocyte 1+ (Negative); Urine Nitrite Negative (Negative); Urine Occult Blood Negative (Negative); Urine Urobilinogen Negative (Neg - 1+)
[2024-09-21 09:44] LABS: ALT (SGPT) 58 U/L (0-35); AST (SGOT) 36 U/L (14-36); Albumin 4.3 g/dl (3.5-5.0); Alkaline Phosphatase 81 U/L (38-126); Blood Urea Nitrogen 17 mg/dl (7-17); Calcium 9.4 mg/dl (8.4-10.2); Carbon Dioxide 31 mmol/L (22-30); Chloride 106 mmol/L (98-107); Glucose 97 mg/dl (70-99); HDL Cholesterol 48 mg/dl; LDL Cholesterol, Calculated 171 mg/dl; Potassium 4.4 mmol/L (3.5-5.1); Sodium 143 mmol/L (135-145); Total Bilirubin 1.7 mg/dl (0.2-1.3); Total Cholesterol 254 mg/dl (50-199); Total Protein 7.1 g/dl (6.3-8.2); Triglyceride 177 mg/dl (10-149); Very Low Density Lipoprotein 35 mg/dl (0-30); eGFR > 60.00
[2024-09-21 09:47] LABS: Urine Squamous Cell 16-20 /LPF (Few)
[2024-09-21 09:48] LABS: Urine Bacteria Few (Negative)
[2024-09-21 09:59] LABS: TSH Reflex To Free T4 1.94 uIU/ml (0.47-4.68)
== END ==
LOC: REG 08:02
PROVIDERS: ATTENDING PHYSICIAN Family Medicine; FAMILY PHYSICIAN Family Medicine
DX: I10 Essential (primary) hypertension (principal); E78.5 Hyperlipidemia, unspecified; K43.9 Ventral hernia without obstruction or gangrene; N20.0 Calculus of kidney
CPT/HCPCS: 36415; 80053; 80061; 81003; 81015; 84443; 85025

== ENCOUNTER → 2024-09-26 10:27 | Outpatient (REF) | payer MEDICARE, SELFPAY ==
[2024-09-26 16:44] LABS: Urine Albumin 2+ (Neg - Trace); Urine Bilirubin Negative (Negative); Urine Character Clear (Clear); Urine Color Yellow; Urine Glucose Negative (Negative); Urine Ketone Negative (Negative); Urine Leukocyte 2+ (Negative); Urine Nitrite Negative (Negative); Urine Occult Blood 4+ (Negative); Urine Urobilinogen Negative (Neg - 1+)
[2024-09-26 17:14] LABS: Urine Calcium Oxalate Crystals Present; Urine Red Blood Cell 70-80 /HPF (0-2)
[2024-09-26 17:15] LABS: Urine Bacteria Moderate (Negative); Urine Mucus Few
== END ==
LOC: CLAB 10:27
PROVIDERS: ATTENDING PHYSICIAN Family Medicine
DX: R82.90 Unspecified abnormal findings in urine (principal)
CPT/HCPCS: 81003; 81015; 87086

== ENCOUNTER → 2024-11-01 13:50 | Outpatient (REF) | payer MEDICARE, SELFPAY | LOC: RAD 13:50 | PROVIDERS: ATTENDING PHYSICIAN Family Medicine | DX: R82.90 Unspecified abnormal findings in urine (principal) | CPT/HCPCS: 76770 ==

== ENCOUNTER → 2024-11-21 13:06 | Outpatient (REF) | payer MEDICARE, SELFPAY | LOC: RAD 13:06 | PROVIDERS: ATTENDING PHYSICIAN Surgery; FAMILY PHYSICIAN Family Medicine | DX: N28.1 Cyst of kidney, acquired (principal) | CPT/HCPCS: 74170; Q9967 ==

== ENCOUNTER → 2024-12-27 09:30 | Outpatient (REF) | payer MEDICARE, SELFPAY ==
[2024-12-27 11:31] LABS: ALT (SGPT) 86 U/L (0-35); AST (SGOT) 38 U/L (14-36); Albumin 4.3 g/dl (3.5-5.0); Alkaline Phosphatase 75 U/L (38-126); Blood Urea Nitrogen 17 mg/dl (7-17); Calcium 9.3 mg/dl (8.4-10.2); Carbon Dioxide 27 mmol/L (22-30); Chloride 111 mmol/L (98-107); Glucose 98 mg/dl (70-99); HDL Cholesterol 39 mg/dl; LDL Cholesterol, Calculated 148 mg/dl; Potassium 4.7 mmol/L (3.5-5.1); Sodium 143 mmol/L (135-145); Total Protein 7.1 g/dl (6.3-8.2); Very Low Density Lipoprotein 26 mg/dl (0-30); eGFR > 60.00
== END ==
LOC: REG 09:30
PROVIDERS: ATTENDING PHYSICIAN Family Medicine; FAMILY PHYSICIAN Family Medicine; OTHER PHYSICIAN Surgery
DX: E78.5 Hyperlipidemia, unspecified (principal); N28.1 Cyst of kidney, acquired
CPT/HCPCS: 36415; 80053; 80061

== ENCOUNTER → 2025-02-28 11:29 | Outpatient (REF) | payer MEDICARE, SELFPAY ==
[2025-02-28 12:56] LABS: ALT (SGPT) 46 U/L (0-35); AST (SGOT) 30 U/L (14-36); Albumin 4.5 g/dl (3.5-5.0); Alkaline Phosphatase 76 U/L (38-126); Blood Urea Nitrogen 18 mg/dl (7-17); Calcium 9.1 mg/dl (8.4-10.2); Carbon Dioxide 28 mmol/L (22-30); Chloride 107 mmol/L (98-107); Glucose 92 mg/dl (70-99); HDL Cholesterol 46 mg/dl; LDL Cholesterol, Calculated 188 mg/dl; Potassium 4.9 mmol/L (3.5-5.1); Sodium 139 mmol/L (135-145); Total Protein 7.2 g/dl (6.3-8.2); Very Low Density Lipoprotein 27 mg/dl (0-30); eGFR > 60.00
[2025-03-01 16:01] LABS: Lyme Antibody Screen, EIA Negative (Negative)
== END ==
LOC: REG 11:29
PROVIDERS: ATTENDING PHYSICIAN Family Medicine; FAMILY PHYSICIAN Family Medicine
DX: E78.5 Hyperlipidemia, unspecified (principal); R79.89 Other specified abnormal findings of blood chemistry; K76.0 Fatty (change of) liver, not elsewhere classified; W57.XXXA Bitten or stung by nonvenomous insect and other nonvenomous arthropods, initial encounter
CPT/HCPCS: 36415; 80053; 80061; 86618

== ENCOUNTER → 2025-04-02 07:17 | Outpatient (REF) | payer MEDICARE, SELFPAY ==
[2025-04-02 10:03] LABS: ALT (SGPT) 58 U/L (0-35); AST (SGOT) 35 U/L (14-36); Albumin 4.5 g/dl (3.5-5.0); Alkaline Phosphatase 79 U/L (38-126); GGTP 47 U/L (12-43); Iron 99 ug/dl (37-170); Total Protein 7.4 g/dl (6.3-8.2)
[2025-04-02 10:12] LABS: Total Iron Binding Capacity 322 ug/dl (265-497)
[2025-04-02 10:25] LABS: Cortisol, Random 8.5 ug/dl
[2025-04-02 10:29] LABS: Ferritin 124.0 ng/ml (11.1-264.0)
[2025-04-02 10:55] LABS: Platelet Count 235 10^3/uL (130-400)
[2025-04-02 11:01] LABS: Folate 9.0 ng/ml (2.76-20); Vitamin B12 426 pg/ml (239-931)
[2025-04-02 19:14] LABS: Hepatitis C Antibody Negative (Negative)
[2025-04-04 02:37] LABS: Mitochondrial M2 Ab, IgG 3.4 Units (0.0-24.9)
[2025-04-04 15:53] LABS: tTG IgA Antibody 5.7 EU/ml (0-19); tTG IgG Antibody 12.8 EU/ml (0-19)
[2025-04-05 00:31] LABS: LKM-1 Ab (IgG) 1.8 U (0.0-24.9); Soluble Liver Antigen Ab 2.6 U (0.0-24.9)
== END ==
LOC: RAD 07:17
PROVIDERS: ATTENDING PHYSICIAN Family Medicine
DX: K76.0 Fatty (change of) liver, not elsewhere classified (principal); R07.89 Other chest pain; R53.83 Other fatigue; U07.1 COVID-19; K57.32 Diverticulitis of large intestine without perforation or abscess without bleeding
CPT/HCPCS: 36415; 76700; 80076; 82390; 82533; 82607; 82728; 82746; 82784; 82977; 83516; 83540; 83550; 85049; 86015; 86231; 86376; 86381; 86704; 86803; 93306

== ENCOUNTER → 2025-06-18 13:14 | Outpatient (REF) | payer MEDICARE, SELFPAY ==
[2025-06-18 14:45] LABS: Urine Character Clear (Clear)
[2025-06-18 15:23] LABS: Urine Squamous Cell >30 /LPF (Few); Urine Urothelial Cell 0-2 /LPF (FEW)
[2025-06-18 15:24] LABS: Urine White Cell 16-20 /HPF (0-5)
== END ==
LOC: REG 13:14
PROVIDERS: ATTENDING PHYSICIAN Obstetrics & Gynecology; FAMILY PHYSICIAN Family Medicine; OTHER PHYSICIAN Surgery
DX: N39.0 Urinary tract infection, site not specified (principal)
CPT/HCPCS: 81003; 81015; 87086